=== PATIENT | male | born 1945 | race Caucasian/White ===

== ENCOUNTER → 2021-01-25 | Outpatient (CLI) | payer BC, OTHER ==
--- NOTE | 2021-01-25 20:43 | REP ---
INDICATION: LOW BACK PAIN. COMPARISON: 05/07/2008. TECHNIQUE: Three AP and lateral views lumbosacral spine. FINDINGS: There is no compression fracture. There is slight retrolisthesis of L3 on L4. There is moderate diffuse spurring. There is mild disc space narrowing and subchondral sclerosis at all levels. There is moderate disc space narrowing, subchondral sclerosis and vacuum at L5-S1. There is diffuse sclerosis and spurring at the posterior facet joints. The posterior elements are intact. 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 No acute fracture or dislocation. <Electronically signed by Ayaz Johnson > 01/25/218
--- NOTE | 2021-01-25 20:44 | REP ---
INDICATION: LOW BACK PAIN. COMPARISON: None. TECHNIQUE: AP view abdomen and pelvis. FINDINGS: There is a normal bowel gas pattern. There is no evidence of bowel obstruction, no dilated bowel loops are seen. I see no evidence of radiopaque renal or ureteral calculi. There are degenerative changes of the spine and hips. Metallic clips are seen in the right inguinal region. IMPRESSION: No bowel obstruction. No radiopaque renal calculi seen. <Electronically signed by Ayaz Johnson > 01/25/21 [id number]
--- NOTE | 2021-01-25 20:46 | REP ---
INDICATION: LOW BACK PAIN. COMPARISON: None. TECHNIQUE: Three AP and lateral views thoracic spine. FINDINGS: There is no fracture or dislocation. There is normal alignment and thoracic kyphosis. There is mild spurring of upper thoracic vertebral bodies with large spurs noted of the anterior aspect of the lower thoracic vertebral bodies. Mild disc space narrowing and subchondral sclerosis is seen at multiple levels. The posterior elements are intact. IMPRESSION: No acute fracture or dislocation. Diffuse degenerative changes. <Electronically signed by Ayaz Johnson > 01/25/21 [id number]
== END ==
LOC: M RAD 18:32
PROVIDERS: ATTEND Physician Assistant
DX: M54.5 Low back pain (principal)

== ENCOUNTER 2023-03-27 07:11 | Day surgery (SDC) | payer MEDICARE, BC, OTHER ==
[~2023-03-27] VITALS: Ht 180.3 cm; Wt 102.0 kg
[~2023-03-27 07:11] MED LIST: AMLO1TAB25 PO; GLIM4TAB5 PO; LISI20TA33 PO; METF10004 PO; NS 1,000 ML IV ONE; PRAV40TA2 PO
[2023-03-27] MEDS ORDERED: propofoL 200 MG/20 ML VIAL As Ordered ONE (07:41)
[2023-03-27] MEDS ORDERED: LIDOCAINE 2% 100MG/5ML SDV (FOR ANES.) As Ordered ONE (07:41)
[2023-03-27 10:00] VITALS: BP 114/60; O2SAT 96
== END 2023-03-27 10:07 | disposition home or self-care (01) ==
LOC: M OPP 07:11
PROVIDERS: ATTEND Internal Medicine Gastroenterology
DX: R19.5 Other fecal abnormalities (principal); D12.6 Benign neoplasm of colon, unspecified; K57.30 Diverticulosis of large intestine without perforation or abscess without bleeding; K64.8 Other hemorrhoids; I25.2 Old myocardial infarction; I10 Essential (primary) hypertension; E78.5 Hyperlipidemia, unspecified; E11.9 Type 2 diabetes mellitus without complications; K21.9 Gastro-esophageal reflux disease without esophagitis; Z85.46 Personal history of malignant neoplasm of prostate; Z92.3 Personal history of irradiation; Z79.84 Long term (current) use of oral hypoglycemic drugs; Z79.899 Other long term (current) drug therapy

== ENCOUNTER → 2023-08-12 | Outpatient (CLI) | payer MEDICARE, BC, OTHER ==
[~2023-08-12] MED LIST changes: -NS 1,000 ML IV ONE
[2023-08-12 17:32] LABS: THYROID STIMULATING HORMONE 0.77 uIU/ML (0.55-4.78)
[2023-08-12 17:33] LABS: FOLATE 12.65 NG/ML (>5.4)
== END ==
LOC: M WUC 14:28
PROVIDERS: ATTEND Psychiatry & Neurology Neurology
DX: E53.8 Deficiency of other specified B group vitamins (principal); E03.9 Hypothyroidism, unspecified

== ENCOUNTER 2025-01-23 11:27 | Emergency (ER) | payer OTHER, MEDICARE, BC ==
[~2025-01-23] VITALS: Ht 180.3 cm; Wt 100.4 kg
[2025-01-23 12:15] LABS: VENOUS BASE EXCESS -0.7 (-2.0-2.0); VENOUS HCO3 23.2 MMOL/L (23.0-27.0); VENOUS O2 SATURATION 96.2 % (60.0-80.0); VENOUS PARTIAL PRESSURE CO2 36.1 mmHg (38.0-50.0); VENOUS PARTIAL PRESSURE O2 85.2 mmHg (30.0-50.0); VENOUS PH 7.426 UNITS (7.330-7.430); VENOUS STANDARD HCO3 23.9 MMOL/L; VENOUS TOTAL CO2 24.3 MMOL/L (24.0-28.0)
[2025-01-23 12:22] LABS: BASO # 0.1 10^3/uL (0.0-0.2); EOS # 0.2 10^3/uL (0.0-0.5); EOS % 3.3 % (0.0-3.0); HEMATOCRIT 40.1 % (42.0-52.0); HEMOGLOBIN 14.4 g/dl (13.5-17.5); LYMPH # 1.8 10^3/uL (1.5-5.0); LYMPH % 30.2 % (24.0-44.0); MEAN CORPUSCULAR HEMOGLOBIN 32.3 pg (27.0-33.0); MEAN CORPUSCULAR HGB CONC 35.9 g/dl (32.0-36.5); MEAN CORPUSCULAR VOLUME 89.9 fl (80.0-96.0); MONO # 0.4 10^3/uL (0.0-0.8); MONO % 6.2 % (2.0-8.0); NEUTROPHILS # 3.6 10^3/uL (1.5-8.5); NEUTROPHILS % 58.8 % (36.0-66.0); PLATELET COUNT, AUTOMATED 181 10^3/uL (150-450); RED BLOOD COUNT 4.46 10^6/uL (4.30-6.10); WHITE BLOOD COUNT 6.1 10^3/uL (4.0-10.0)
[2025-01-23 12:35] LABS: KETONE, URINE AUTO RFX TRACE mg/dL (NEGATIVE); LEUKOCYTE ESTERASE UR AUTO RFX NEGATIVE (NEGATIVE); MUCUS, URINE RFX SMALL (NEGATIVE); NITRITE, URINE AUTO RFX NEGATIVE (NEGATIVE); RBC, URINE AUTO RFX 1 /HPF (0-3); SQUAM EPITHELIAL CELL UR AURFX 0 /HPF (0-6); WBC, URINE AUTO RFX 1 /HPF (0-3)
[2025-01-23 12:39] LABS: HEMOGLOBIN A1c 8.9 % (4.0-6.0); OSMOLALITY SERUM 310 MOSM/KG (280-301)
[2025-01-23 12:41] LABS: LIPASE 43 U/L (12-53)
[2025-01-23 12:42] LABS: ACETONE/KETONE 0.55 MMOL/L (0.02-0.27); ALBUMIN 3.9 G/DL (3.2-5.2); ALKALINE PHOSPHATASE 76 U/L (40-129); ALT/SGPT 45 U/L (7.0-40); AST/SGOT 36 U/L (<34); BILIRUBIN,DIRECT 0.3 MG/DL (<0.4); BILIRUBIN,TOTAL 1.3 MG/DL (0.3-1.2); BLOOD UREA NITROGEN 24 MG/DL (9-23); CALCIUM LEVEL 8.7 MG/DL (8.3-10.6); CARBON DIOXIDE LEVEL 23 MMOL/L (20-31); CHLORIDE LEVEL 102 MMOL/L (98-107); CREATININE FOR GFR 1.18 MG/DL (0.70-1.30); GLOMERULAR FILTRATION RATE > 60.0 (>42); GLUCOSE, FASTING 387 MG/DL (74-106); POTASSIUM SERUM 4.4 MMOL/L (3.5-5.1); SODIUM LEVEL 137 MMOL/L (136-145); TOTAL PROTEIN 7.2 G/DL (5.7-8.2)
[2025-01-23] MEDS: NS (Normal Saline) 0.9% 1,000 ML IV ONE (13:16)
[2025-01-23] MEDS: HumuLIN R (REGULAR) INSULIN (NovoLIN R) **100U/ML** PER UNIT IV ONE (13:17)
[2025-01-23 15:57] VITALS: BP 134/77; TEMP 97.6; O2SAT 97
== END 2025-01-23 16:35 | disposition home or self-care (01) ==
LOC: M ED 11:27
DX: E11.65 Type 2 diabetes mellitus with hyperglycemia (principal); Z91.148 Patient's other noncompliance with medication regimen for other reason; I44.4 Left anterior fascicular block; I45.81 Long QT syndrome; I10 Essential (primary) hypertension; I25.2 Old myocardial infarction; Z79.84 Long term (current) use of oral hypoglycemic drugs; Z79.899 Other long term (current) drug therapy
CPT/HCPCS: 80048; 80076; 81001; 82010; 82803; 83036; 83690; 83930; 85025; 93005; 96361; 96374; 99284; J1815

== ENCOUNTER 2025-05-01 13:34 | Outpatient (RCR) | payer OTHER, MEDICARE, BC ==
[~2025-05-01 13:34] MED LIST changes: -PRAV40TA2 PO; +PRAV40TA85 PO
== END 2025-05-18 ==
LOC: M PT 13:34
PROVIDERS: ATTEND Family Medicine
DX: M77.8 Other enthesopathies, not elsewhere classified (principal)

== ENCOUNTER 2025-06-08 14:56 | Outpatient (RCR) | payer MEDICARE, BC | END 2025-06-18 | LOC: M PT 14:56 | PROVIDERS: ATTEND Family Medicine | DX: M77.8 Other enthesopathies, not elsewhere classified (principal) ==